=== PATIENT | male | born 1965 | race Hispanic/Latino ===

== ENCOUNTER 2024-06-27 12:48 | Emergency (ER) | payer OTHER ==
[~2024-06-27] VITALS: Ht 167.6 cm; Wt 59.9 kg
[~2024-06-27 12:48] MED LIST: LOSA-418 PO; NIFE-40 PO
[2024-06-27 12:49] VITALS: TEMP 97
--- NOTE | 2024-06-27 12:54 | NUR ---
PT JUST NOW PLACED IN MY ED BED 17
--- NOTE | 2024-06-27 13:10 | ERN ---
ED Note History of Present Illness Stated Complaint: SOB Chief Complaint: Shortness of Breath Time Seen by MD: 13:03 Dictation: PATIENT IS A 58-YEAR-OLD MALE past medical history of COPD, hypertension, chronic smoker, asthma, cocaine use, marijuana use came to the ED with chief complaint of shortness of the breath since 1 day. Patient was discharged 5 days ago from the hospital, he was admitted earlier with a diagnosis of COPD and was discharged with medication. He has 6 dogs at home, He was doing well until yesterday , when he started cleaning the house yesterday, shortly after he started having shortness of breath. Today 8 presentation he was hypertensive with blood pressure of 170/110. Patient informs that he is compliant with the medication. Patient denies taking cocaine, marijuana recently. Patient denies chest pain, nausea, vomiting, headaches. Allergies: Coded Allergies: No Known Allergies (Unverified Allergy, Unknown, 06/20/24) Home Meds Active Scripts Albuterol Sulfate (Albuterol Sulfate) 2.5 Mg/0.5 Ml Vial.neb, 1 VIAL NEB Q6H for shortness of breath for 30 Days, #60 ML 0 Refills Prov:KIMBERLY BRADY MD 06/27/24 Fluticasone Propion/Salmeterol (Fluticasone-Salmeterol 100-50) 100 Mcg-50 Mcg/Dose Blst.w.dev, 1 EACH IH BID, #5 AMP Prov:KIMBERLY BRADY MD 06/27/24 Amoxicillin/Potassium Clav (Amox Tr-K Clv 875-125 mg Tab) 875 Mg-125 Mg Tablet, 1 EACH PO DAILYBKFST for 7 Days, #7 TAB Prov:KIMBERLY BRADY MD 06/27/24 Prednisone (Prednisone) 20 Mg Tablet, 40 MG PO DAILY for 5 Days, #5 TAB Prov:KIMBERLY BRADY MD 06/27/24 Nifedipine (Nifedipine ER) 30 Mg Tab.er.24, 30 MG PO BID, #60 TAB 0 Refills Prov:DYLAN BROOKS MD 06/22/24 Losartan Potassium (Cozaar) 50 Mg Tablet, 50 MG PO BID, #60 TAB 0 Refills Prov:DYLAN BROOKS MD 06/22/24 Past Medical History Past Medical History: COPD, Hypertension Surgical History: Other Surgical History Other: LEFT LOWER EXT. Review of System Dictation Constitutional-no chills, fever. The patient informed about 24 lb weight loss Eyes-no injury, pain, redness and discharge ENT-no injury, pain, swelling Cardiovascular no chest pain, palpitations, edema Respiratory patient has shortness of breath, cough, wheezing Abdomen/GI-no abdominal pain, diarrhea, constipation, vomiting, nausea Back no injury and pain Genitourinary no injury, bleeding and discharge Musculoskeletal/extremities no injury, deformity Skin no rash, discoloration Neuro-no headache, weakness, numbness, tingling, seizures, tremors Psych-no suicidal ideation, homicidal ideation, hallucinations, depression, memory of the loss. Patient looked very anxious Initial Vital Sign VS Physical Exam Dictation General-patient is awake alert and oriented Head/neck-normocephalic, atraumatic Eyes-PERRL, EOMI, vision at baseline Neck-trachea midline, supple, no nuchal rigidity Cardiovascular-RRR, normal S1/S2, no MRG is, no JVD Respiratory-no distress. rales, rhonchi heard on auscultation Abdomen-no tenderness, guarding, soft, nondistended Skin warm, dry, normal turgor, no rash Musculoskeletal/extremities pulses equal, no cyanosis Neuro-COA X 4, GCS 15, strength 5/5, CN 2-12 intact Psych-normal behavior, mood and affect normal Results (Laboratory/Radiology) Laboratory/Radiology ED Course ED Course Medical Decision Making MDM INITIAL IMPRESSION Initial history and physical concerning for COPD exacerbation Contributing medical problems: History of COPD, asthma, chronic smoking I have reviewed the triage nursing notes and vital signs. Initial plan: Laboratory evaluation and x-ray DATA REVIEW I have reviewed additional NN, repeat VS, and monitoring where indicated. Heart rate, blood pressure, and O2 saturation are acceptable. ED COURSE Interventions: Nebulizers and labs Reassessment: Patient Feeling better DISPOSITION Final diagnostic impression: Exacerbation of COPD I discussed my findings, clinical impression and treatment recommendations with the patient. I have reviewed the social factors contributing to the patient's presentation and disposition planning. My final plan for disposition was made based upon -mild risk of complications and potential morbidity of the patient's condition. -Discussion with the patient regarding management options. PATIENT WILL BE DISCHARGED WITH medication DX & DISP Disposition: Discharge Departure Impression: Primary Impression: COPD exacerbation Critical Time: 30 minutes Condition: Stable Scripts Albuterol Sulfate (Albuterol Sulfate) 2.5 Mg/0.5 Ml Vial.neb 1 VIAL NEB Q6H for shortness of breath for 30 Days, #60 ML 0 Refills Prov: KIMBERLY BRADY MD 06/27/24 Fluticasone Propion/Salmeterol (Fluticasone-Salmeterol 100-50) 100 Mcg-50 Mcg/Dose Blst.w.dev 1 EACH IH BID, #5 AMP Prov: KIMBERLY BRADY MD 06/27/24 Amoxicillin/Potassium Clav (Amox Tr-K Clv 875-125 mg Tab) 875 Mg-125 Mg Tablet 1 EACH PO DAILYBKFST for 7 Days, #7 TAB Prov: KIMBERLY BRADY MD 06/27/24 Prednisone (Prednisone) 20 Mg Tablet 40 MG PO DAILY for 5 Days, #5 TAB Prov: KIMBERLY BRADY MD 06/27/24 Additional Instructions: Come back to the ED if you have any acute or emergency symptoms Take your medicines exactly as your doctor tells you. Use your inhaler as directed by your doctor. If your symptoms do not get better after you use your medicine, have someone take you to the emergency room. Call an ambulance if necessary. With inhaled medicines, a spacer or a nebulizer may help you get more medicine to your lungs. Ask your doctor or pharmacist how to use them properly. Practice using the spacer in front of a mirror before you have an exacerbation. This may help you get the medicine into your lungs quickly. steroid pills, take them as directed. antibiotics, take them as directed Talk to your doctor if you have any problems with your medicine. And call your doctor or nurse advice line if you have to use your antibiotic or steroid pills. Preventing an exacerbation Do not smoke. This is the most important step you can take to prevent more damage to your lungs and prevent problems. If you already smoke, it is never too late to stop. If you need help quitting, talk to your doctor about stop-smoking programs and medicines. These may increase your chances of quitting for good. Take your daily medicines as prescribed. Avoid infections such as COVID-19, colds, and influenza (flu). Wash your hands often. Stay up to date on your COVID-19 vaccines. Get a flu vaccine each year, as soon as it is available. Ask those you live or work with to do the same, so they will not get the flu and infect you. Get the pneumococcal and whooping cough (pertussis) vaccines. Avoid second-hand smoke and air pollution. Try to stay inside with your windows closed when air pollution is bad. Learn breathing techniques for COPD, such as pursed-lip breathing. These techn iques may help you breathe easier during an exacerbation. Referrals: MARCIN SIERRA (PCP) Time of Disposition: 15:13 I have reviewed I have reviewed the case I performed the substantive portion of the visit. I have reviewed and personally made and approve the management plan that is documented in the notes by myself or the resident physician. I acknowledge full responsibility for the patient's management plan. I have examined patient JOSE ANTONIOKIMBERLY MD Jun 27, 2024 13:10 HARSHAL FUENTES MD Aug 18, 2024 14:48
[2024-06-27 13:38] LABS: BASOPHILS # (AUTO) 0.08 K/uL (0.00-0.20); BASOPHILS % (AUTO) 0.6 % (0.0-5.0); EOSINOPHILS # (AUTO) 1.78 K/uL (0.00-0.70); EOSINOPHILS % (AUTO) 13.3 % (0.0-8.0); HEMATOCRIT 46.1 % (42-54); IMMATURE GRANULOCYTE ABSOLUTE 0.12 K/uL (0-1); LYMPHOCYTES # (AUTO) 1.3 K/uL (1.0-4.8); LYMPHOCYTES % (AUTO) 9.3 % (21.0-51.0); MEAN CORPUSCULAR HEMOGLOBIN 31.9 pg (27.0-33.0); MEAN CORPUSCULAR HGB CONC 34.7 g/dL (32.0-36.0); MONOCYTES # (AUTO) 0.8 K/uL (0.1-1.0); MONOCYTES % (AUTO) 5.9 % (3.0-13.0); NEUTROPHILS # (AUTO) 9.4 K/uL (1.8-7.7); PLATELET COUNT (AUTO) 340 K/uL (130-400); RED BLOOD CELL COUNT(AUTO) 5.01 MIL/uL (4.50-6.20); RED CELL DISTRIBUTION WIDTH 12.5 % (11.0-15.5); WHITE BLOOD COUNT (AUTO) 13.4 K/uL (4.8-10.8)
--- NOTE | 2024-06-27 13:40 | EKG ---
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
[2024-06-27 13:46] LABS: CREATININE 1.6 mg/dL (0.5-1.3); POTASSIUM 4.1 mmol/L (3.5-5.1)
[2024-06-27 14:14] VITALS: PULSE 98; RESP 18
[2024-06-27] MEDS: IpraTROPium/alBUTERol SULFATE 3 ML SOLUTION IH ONE (14:14)
[2024-06-27 14:18] LABS: B-TYPE NATRIURETIC PEPTIDE 20 pg/mL (0-100)
[2024-06-27] MEDS: Solu-medROL 125MG VIAL IVP ONE (15:10)
[2024-06-27] MEDS ORDERED: PRED20TA3 PO (15:11)
[2024-06-27] MEDS ORDERED: AMOX1TAB16 PO (15:11)
[2024-06-27] MEDS ORDERED: FLUT1BLS11 IH (15:11)
[2024-06-27] MEDS ORDERED: AUD NEB (15:11)
--- NOTE | 2024-06-27 15:14 | HMCIMG ---
CHEST 1VW REASON: SOB COMPARISON: 06/20/2024 FINDINGS: Single view of the chest was obtained. Lungs are clear. Heart size is normal. There is no pulmonary vascular congestion. Mediastinum and bony thorax appear unremarkable. IMPRESSION: 1. Normal single view chest x-ray.
[2024-06-27 15:46] VITALS: BP 169/115; PULSE 90; RESP 16; O2SAT 97
--- NOTE | 2024-06-30 12:40 | NUR ---
SPOKE TO SHANELLE PHARMACIST FROM [facility] TO AMEND AMOUNT DISTRIBUTED
== END 2024-06-27 15:31 | disposition home or self-care (01) ==
LOC: EDH 12:48
DX: J44.1 Chronic obstructive pulmonary disease with (acute) exacerbation (principal); I10 Essential (primary) hypertension; Z79.899 Other long term (current) drug therapy; Z98.890 Other specified postprocedural states
CPT/HCPCS: 99291; 96374; 84484; 80048; 83880; 85025; 36415; 71045; 93005; 94640; J2919; 99285